=== PATIENT | male | born 1985 | race Caucasian/White ===

== ENCOUNTER 2021-07-10 02:11 | Emergency (ER) | payer SELFPAY ==
[2021-07-10 02:10] VITALS: BP 131/98; PULSE 80; RESP 20; TEMP 36.4; O2SAT 99
[2021-07-10 02:18] VITALS: RESP 17
--- NOTE | 2021-07-10 02:24 | ECG_ITS ---
Measurements Intervals [place] Rate: 71 P: 61 MT: 172 QRS: 50 QRSD: 93 T: 53 QT: 368 QTc: 400 Interpretive Statements SINUS RHYTHM VOLTAGE CRITERIA FOR LVH [MEETS CRITERIA IN ONE OF: R(aVL), S(V1), R(V5), R(V5/V6)+S(V1)] ST ELEVEVATION, PROBABLE NORMAL EARLY REPOL PATTERN NO PREVIOUS ECG AVAILABLE FOR COMPARISON Electronically Signed On 07-10-2021 18:24:57 CDT by Estefani Garcia M.D.
[2021-07-10 02:31] LABS: Basophils Percent Auto 0.5 % (0.2-1.2); Eosinophils Percent Auto 0.2 % (0-4.4); Hematocrit 41.2 % (42.0-52.0); Hemoglobin 13.7 g/dL (14.0-18.0); Lymphocytes Absolute Auto 1.87 K/mm3 (0.9-3.2); Lymphocytes Percent Auto 42.9 % (18.3-44.2); Mean Corpuscular HGB Conc 33.3 g/dl (32-36); Mean Corpuscular Hemoglobin 29.6 pg (26-34); Mean Platelet Volume 10.4 fl (7.4-10.4); Monocytes Absolute Auto 0.5 K/mm3 (0.1-0.6); Monocytes Percent Auto 11.2 % (2.6-8.5); Neutrophils Percent Auto 45.2 % (45.5-73.1); Platelet Count Result 177 k/mm3 (150-375); Red Blood Count 4.63 M/mm3 (4.6-6.20); Red Cell Distribution Width 12.8 % (11.5-14.5); White Blood Count 4.4 K/mm3 (4.5-10.0)
[2021-07-10] MEDS: SODIUM CHLORIDE 0.9% IV 1,000 ML 999 ML IV CONT (02:32)
--- NOTE | 2021-07-10 02:34 | ED.OVERDOSE ---
HPI - Overdose General Chief Complaint: Overdose Stated Complaint: FENTANYL INGESTION Time Seen by Provider: 07/10/21 02:19 Source: patient History of Present Illness HPI Narrative: Patient presents with fentanyl ingestion. Reports he was pulled over by the route process administrator and he wanted to get caught with fentanyl so he took approximately 4 tablets he said they were strong but is unsure the dose that each tablet. Physical he takes 1 to get high but he feels well EMS did give him Narcan as he did not want it because he was alert no everything that was going on. Denies any other ingestions this evening he denies any attempts to harm himself he just did not want to get caught with the fentanyl he has no acute complaints right now he just feels tired. Related Data Allergies Allergy/AdvReac Type Severity Reaction Status Date / Time No Known Allergies Allergy Verified 07/10/21 02:19 Review of Systems Review of Systems: CONSTITUTIONAL: Denies fever, chills, or sweats. EYES: Denies visual changes, redness, or discharge. ENT: Denies rhinorrhea, congestion, sore throat, or otalgia. CARDIOVASCULAR: Denies chest pain, palpitations, or edema. RESPIRATORY: Denies cough or dyspnea. GASTROINTESTINAL: Denies abdominal pain, nausea, vomiting, or diarrhea. GENITOURINARY: Denies dysuria or hematuria. SKIN: Denies rash or itching. MUSCULOSKELETAL: Denies back pain, joint pain, or myalgia. NEUROLOGIC: Denies headache, numbness, dizziness, or weakness. PSYCHIATRIC: Denies anxiety or depression. All systems reviewed & are unremarkable except as noted in HPI and below PMFSH Social History Social History Substance use type: opiates Exam Narrative: GENERAL: Well-appearing, well-nourished, and in no acute distress. HEAD: Normocephalic, atraumatic. EYES: PERRLA and EOMI. ENT: Nares clear, no rhinorrhea or epistaxis. Mucous membranes moist. NECK: Supple. No masses. No JVD CHEST: Clear to auscultation. No respiratory distress. No wheezes rales or rhonchi HEART: Regular rate and rhythm. No murmur heard. Normal peripheral pulses. ABDOMEN: Soft, nontender, nondistended, normal active bowel sounds. EXTREMITIES: Normal range of motion. No edema. SKIN: Warm, dry, no rash. NEURO: No focal deficits. Alert and oriented x3. PSYCH: Normal mood and affect. Course Reevaluation(s) Reevaluation #1: Patient is sleepy but arousable he has no complaints he would like to go home. Continues to be without complaint. He is monitoring approximately 4 hours after his ingestion. Patient report does not have any Narcan at home he will be given a prescription. Patient was discharged home with family. Patient's pupils were equal and reactive on repeat exam Date: 07/10/21 Time: 05:14 Vital Signs Vital signs: Vital Signs Temperature 36.4 C L 07/10/21 02:10 Pulse Rate 80 07/10/21 02:10 Respiratory Rate 20 07/10/21 02:10 Blood Pressure 131/98 H 07/10/21 02:10 Pulse Oximetry 99 07/10/21 02:10 Temperature 36.4 C L 07/10/21 02:10 Pulse Rate 75 07/10/21 05:29 Respiratory Rate 18 07/10/21 05:29 Blood Pressure 107/65 07/10/21 05:29 Pulse Oximetry 98 07/10/21 05:29 MDM - Overdose MDM Narrative Medical decision making narrative: H&P as above, vss, pt looks clinically well, exam without clear toxidrome, labs unremarkable, additional labs/img considered, symptomatic relief available as needed, on reevaluation pt continues to looks clinically well. Suspect intentional ingestion to avoid a legal action, dns suicidal ideation.. plan to tx/monitor as op w/ pcm f/u findings/plan discussed with pt, pt agree/comfortable with plan, return precautions given Lab Data Result diagrams: 07/10/21 02:27 07/10/21 04:37 Labs: Lab Results 07/10/21 07/10/21 Range/Units 02:27 04:37 WBC 4.4 L (4.5-10.0) K/mm3 RBC 4.63 (4.6-6.20) M/mm3 Hgb 13.7 L (14.0-18.0) g/dL Hct
--- NOTE | 2021-07-10 02:35 | PC.NURSE ---
spoke with Ranjana at [facility]. She states supportive care for symptoms and observation. she will call back in 2 hrs to check lab results.
--- NOTE | 2021-07-10 02:45 | PC.NURSE ---
pt states unable to provide urine sample at this time.
[2021-07-10 03:52] VITALS: BP 118/74; PULSE 72; RESP 16; O2SAT 96
--- NOTE | 2021-07-10 04:48 | PC.NURSE ---
poison control calls for updates on labs and vitals. no new recommendations
--- NOTE | 2021-07-10 04:50 | PC.NURSE ---
pt states unable to provide urine sample at this time. pt refusing urinary catheterization at this time.
[2021-07-10 05:01] LABS: Alanine Aminotransferase 23 U/L (4-50); Albumin Level 3.6 g/dL (3.5-5.1); Alkaline Phosphatase 64 U/L (38-126); Anion Gap 4 mmol/L (8-16); Aspartate Amino Transferase 41 U/L (17-59); Bilirubin,Total 0.3 mg/dL (0.2-1.3); Blood Urea Nitrogen 20 mg/dL (9-20); Calcium 7.9 mg/dL (8.4-10.2); Carbon Dioxide 29 mmol/L (22-30); Chloride 103 mmol/L (98-107); Estimated CRCL calculation 128 ml/min; Estimated Glomerular Filt Rate > 60; Glucose 107 mg/dL (65-110); Sodium 136 mmol/L (137-145)
[2021-07-10 05:29] VITALS: BP 107/65; PULSE 75; RESP 18; O2SAT 98
== END 2021-07-10 05:31 | disposition home or self-care (01) ==
PROVIDERS: Emergency Provider Emergency Medicine; PCP Emergency Medicine
DX: T40.411A Poisoning by fentanyl or fentanyl analogs, accidental (unintentional), initial encounter (principal); R94.31 Abnormal electrocardiogram [ECG] [EKG]
CPT/HCPCS: 36415; 80053; 85025; 93005; 96360; 99284; J7030